=== PATIENT | female | born 1975 | race Caucasian/White ===

== ENCOUNTER 2022-09-13 15:06 | Outpatient (CLI) | payer BC, SELFPAY ==
--- NOTE | ~2022-09-13 | XR_ITS ---
EXAMINATION: XR lumbar spine 2-3V DATE: 09/13/2022 15:29 INDICATION: Low back pain TECHNIQUE: Anteroposterior and lateral views of the lumbar spine, and cone-down lateral view of the l umbosacral junction were obtained. COMPARISON: None. FINDINGS: There is moderate loss of intervertebral disc space height at L5-S1. The vertebral body hei ghts are maintained. There is no fracture. 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 Small degenerative osteophytes project from the anterior endplates of multiple vertebral bodies . IMPRESSION: 1. Moderate lumbar spondylosis at L5-S1. Reviewed, dictated and finalized at location B.
== END 2022-09-13 15:07 | disposition home or self-care (01) ==
LOC: ANHLAB 15:12 → ANHIMG 15:13
PROVIDERS: PCP Internal Medicine; Visit Provider Anesthesiology Pain Medicine
DX: M47.26 Other spondylosis with radiculopathy, lumbar region (principal); M47.897 Other spondylosis, lumbosacral region
CPT/HCPCS: 72100

== ENCOUNTER 2022-10-11 14:48 | Emergency (ER) | payer BC, SELFPAY ==
--- NOTE | ~2022-10-11 | XR_ITS ---
EXAMINATION: XR finger 5th LT min 2V INDICATION: Left fifth finger pain TECHNIQUE: Three views of the left fifth finger are obtained. COMPARISON: None available FINDINGS: There is an acute, traumatic, presumed open tuft fracture of the fifth distal phalanx. Soft tissue swelling surrounds the fracture. The joint spaces are normal. No additional fracture is ident ified. IMPRESSION: 1. Presumed open tuft fracture of the fifth distal phalanx. Reviewed, dictated and finalized at location B.
[2022-10-11 14:53] VITALS: BP 146/90; PULSE 114; RESP 15; TEMP 36.6; O2SAT 100
[2022-10-11] MEDS: TETANUS,DIPHTHERIA,AC PERTUSSIS ADULT (0.5 ML) BOOSTRIX IM (16:55)
--- NOTE | 2022-10-11 17:03 | ED.WOUNDLAC ---
HPI - Wound/Laceration General Chief Complaint: Wound/Laceration <CATE Cedillo Last Filed: 10/11/22 20:05> Stated Complaint: laceration <CATE Cedillo Last Filed: 10/11/22 20:05> Time Seen by Provider: 10/11/22 16:22 <CATE Cedillo Last Filed: 10/11/22 20:05> Source: patient <CATE Cedillo Last Filed: 10/11/22 20:05> Mode of arrival: ambulatory <CATE Cedillo Last Filed: 10/11/22 20:05> Limitations: no limitations <CATE Cedillo Last Filed: 10/11/22 20:05> History of Present Illness HPI narrative: Patient is a 46-year-old female who presents to the ED with report laceration/crush injury to her left fifth digit. Patient reports she was at work today and moving a heavy piece of computer machinery when the machinery tilted upward and fell down, crushing her distal left fifth digit. The nail was completely removed. Patient complains of severe pain to the left fifth digit. No numbness or tingling. No other injuries. Tetanus status unknown. <CATE Cedillo Last Filed: 10/11/22 20:05> Related Data Allergies/Adverse Reactions: Allergies Allergy/AdvReac Type Severity Reaction Status Date / Time amoxicillin Allergy Unknown Unknown Verified 10/11/22 15:50 ibuprofen Allergy Unknown Ulcers Verified 10/11/22 15:50 latex Allergy Unknown Itching Verified 10/11/22 15:50 Penicillins Allergy Unknown HIVES Verified 04/08/15 09:22 <CATE Cedillo Last Filed: 10/11/22 20:05> Review of Systems Review of Systems: CONSTITUTIONAL: Denies fever, chills, or sweats. SKIN: See HPI. MUSCULOSKELETAL: See HPI. NEUROLOGIC: Denies tingling, numbness, or weakness. <CATE Cedillo Last Filed: 10/11/22 20:05> All systems reviewed & are unremarkable except as noted in HPI and below <Eileen Fuentes PA-C - Last Filed: 10/11/22 20:05> [facility] Family History Family History: Family History (Updated 12/09/13 @ 07:13 by DOCTOR UNKNOWN) Sibling Depression Other Diabetes mellitus Family history of elevated blood lipids Hypertension <Eileen Fuentes PA-C - Last Filed: 10/11/22 20:05> Social History Social History: Social History Smoking status: Smoker, status unknown Alcohol intake: never <Eileen Fuentes PA-C - Last Filed: 10/11/22 20:05> Exam Narrative: GENERAL: Appears older than stated age, thin, non-toxic, in no acute distress. HEAD: Normocephalic, atraumatic. NECK: Supple. No adenopathy, no masses. RESPIRATORY: Airway patent, respirations nonlabored. CARDIOVASCULAR: Regular rate and rhythm without murmurs, rubs, or gallops. Radial pulses 2+ and equal bilaterally. MUSCULOSKELETAL: Moves all extremities. Full range of motion of left fifth digit flexion and extension. Distal sharp touch sensation intact. Obvious open fracture to distal left fifth digit, complete nail avulsion with disruption of nailbed/nail fold, particularly superiorly and medially. Laceration extending into medial edge of finger and distal finger pad. Active bleeding from medial nailbed. SKIN: Warm, dry, normal color. No rashes. NEURO: A&O X3. Speech clear. Cranial nerves II-XII grossly intact. Steady gait. No ataxic movements. PSYCHIATRIC: Anxious. Normal interaction. <Eileen Fuentes PA-C - Last Filed: 10/11/22 20:05> Course CLINICAL NURSE LEADER/PA Physician Supervision For this patient encounter, I reviewed the CLINICAL NURSE LEADER or PA documentation, treatment plan, and medical decision making and I had [id number] time with this patient. I performed all aspects of the MDM as documented. <Meka Matamoros MD - Last Filed: 10/12/22 15:26> Vital Signs Vital signs: Vital Signs Temperature 97.8 F 10/11/22 14:53 Pulse Rate 114 H 10/11/22 14:53 Respiratory Rate 15 10/11/22 14:53 Blood Pressure
[2022-10-11] MEDS: ceFAZolin SODIUM 1 GM VIAL IM (18:13)
[2022-10-11] MEDS: WATER, STERILE FOR INJECTION 10 ML VIAL XX (18:13)
== END 2022-10-11 19:37 | disposition home or self-care (01) ==
PROVIDERS: Emergency Provider Physician Assistant; PCP Physician Assistant
DX: S62.637B Displaced fracture of distal phalanx of left little finger, initial encounter for open fracture (principal); Z23 Encounter for immunization; W31.89XA Contact with other specified machinery, initial encounter
CPT/HCPCS: 12001; 73140; 90471; 90715; 96372; 99283; J0690